=== PATIENT | female | born 1970 | race Caucasian/White ===

== ENCOUNTER 2020-07-26 08:00 | Outpatient (CLI) | payer OTHER ==
--- NOTE | 2020-07-26 16:51 | XRAY Report ---
PROCEDURE: Lumbar Spine 2 View INDICATIONS: LOW BACK PAIN WITH RADICULOPATHY TECHNIQUE: 2 views of the lumbar spine were acquired. COMPARISON: None. FINDINGS: Bones: 5 [id number] vertebrae are present. There is normal bony alignment. No vertebral body compression fractures. Very mild degenerative endplate changes are noted at L3-4 and L4-5 levels. No suspicious bony lesions. Soft tissues: Overlying bowel gas pattern is normal. No suspicious soft tissue calcifications. IMPRESSION: Very mild degenerative disc disease in lower lumbar spine. No compression fracture or sp ondylolisthesis. Reviewed by: Galo Bentley MD on 07/26/2020 4:50 PM PST Approved by: Galo Bentley MD on 07/26/2020 4:50 PM PST Station ID: [id number]
== END 2020-07-26 23:59 | disposition home or self-care (01) ==
LOC: DI.N 08:00
PROVIDERS: ATTEND Family Medicine
DX: M51.36 Other intervertebral disc degeneration, lumbar region (principal)